=== PATIENT | male | born 1985 | race Caucasian/White ===

== ENCOUNTER 2025-04-20 09:30 | Emergency (ER) | payer BC ==
[~2025-04-20] VITALS: Ht 188 cm; Wt 98.9 kg
[2025-04-20] MEDS ORDERED: LIDOCAINE 1% INJ 50 ML MDV IJ ONE ×2 (09:55)
[2025-04-20 11:02] VITALS: BP 149/90; TEMP 98.6; O2SAT 99
== END 2025-04-20 11:02 | disposition home or self-care (01) ==
LOC: ER 09:42
DX: S61.214A Laceration without foreign body of right ring finger without damage to nail, initial encounter (principal); E78.00 Pure hypercholesterolemia, unspecified; W25.XXXA Contact with sharp glass, initial encounter; Y93.89 Activity, other specified; Y92.89 Other specified places as the place of occurrence of the external cause; Y99.8 Other external cause status
CPT/HCPCS: 12002; 73130; 99283; J3490